=== PATIENT | male | born 1955 | race Caucasian/White ===

== ENCOUNTER 2019-12-12 09:49 | Emergency (ER) | payer MEDICARE, OTHER ==
[~2019-12-12] VITALS: Ht 185.4 cm; Wt 104.3 kg
[2019-12-12] MEDS ORDERED: KEFLEX500 MG PO (10:04)
[2019-12-12] MEDS ORDERED: BACTRIM DS TAB1 EACH PO (10:04)
[2019-12-12] MEDS ORDERED: TYLENOL WITH C1 EACH PO (10:05)
[2019-12-12] MEDS ORDERED: LEVOXYL25 MCG PO (10:11)
[2019-12-12] MEDS ORDERED: PERCOCET 5-3251 EACH PO (11:56)
== END 2019-12-12 12:50 | disposition home or self-care (01) ==
LOC: ED 09:49
DX: J34.0 Abscess, furuncle and carbuncle of nose (principal); E78.5 Hyperlipidemia, unspecified; E03.9 Hypothyroidism, unspecified; Z79.899 Other long term (current) drug therapy
CPT/HCPCS: 80048; 83605; 85025; 96374; 99283-25; J3490